=== PATIENT | female | born 1985 | race African-American/Black ===

== ENCOUNTER 2017-04-08 00:33 | Emergency (ER) | payer SELFPAY ==
[~2017-04-08] VITALS: Ht 165.1 cm; Wt 70.0 kg
[~2017-04-08 00:33] MED LIST: ALBU6.7H INH; DOCO200C5
[2017-04-08 07:30] VITALS: BP 117/69
== END 2017-04-08 08:14 | disposition home or self-care (01) ==
LOC: ER 00:33
DX: Z00.8 Encounter for other general examination (principal); F91.9 Conduct disorder, unspecified; F20.9 Schizophrenia, unspecified; F31.9 Bipolar disorder, unspecified; F15.10 Other stimulant abuse, uncomplicated; Z91.018 Allergy to other foods
CPT/HCPCS: 99281

== ENCOUNTER 2017-04-08 09:03 | Emergency (ER) | payer SELFPAY ==
[~2017-04-08] VITALS: Ht 167.6 cm; Wt 60.0 kg
[2017-04-08 10:00] VITALS: BP 110/65
== END 2017-04-08 10:05 | disposition home or self-care (01) ==
LOC: ER 09:24
DX: Z00.8 Encounter for other general examination (principal); F20.9 Schizophrenia, unspecified; F31.9 Bipolar disorder, unspecified; Z53.29 Procedure and treatment not carried out because of patient's decision for other reasons; Z91.018 Allergy to other foods
CPT/HCPCS: 99284

== ENCOUNTER 2017-04-08 12:36 | Emergency (ER) | payer SELFPAY ==
[~2017-04-08] VITALS: Ht 165.1 cm; Wt 60.0 kg
[2017-04-08 13:43] LABS: BASOPHILS % 0.3 % (0.0-2.0); EOSINOPHILS % 6.9 % (0.0-5.0); HEMATOCRIT. 32.4 % (36.0-48.0); HEMOGLOBIN. 10.9 g/dL (12.0-16.0); LYMPHOCYTES % 41.5 % (20.0-50.0); MEAN CORPUSCULAR HEMOGLOBIN 31.7 pg (28.0-32.0); MEAN CORPUSCULAR VOLUME 94.4 fL (81.0-99.0); MEAN PLATELET VOLUME 9.1 fl (7.4-10.4); MONOCYTES % 9.3 % (2.0-8.0); PLATELET 266 x1000/uL (130-400); RED BLOOD CELL COUNT 3.43 mill/uL (4.2-5.4); RED CELL DISTRIBUTION WIDTH 14.3 % (11.6-14.6)
[2017-04-08 13:45] LABS: CARBON DIOXIDE 30 mEq/L (21-32); CHLORIDE 107 mEq/L (98-107); ETHANOL BLOOD < 10 mg/dL
[2017-04-08 13:48] LABS: CLARITY URINE CLEAR (CLEAR); COLOR URINE YELLOW (YELLOW); GLUCOSE URINE NEGATIVE (NEGATIVE); KETONES URINE 1+ (NEGATIVE); LEUKOCYTE ESTERASE URINE NEGATIVE (NEGATIVE); NITRITE URINE NEGATIVE (NEGATIVE); OCCULT BLOOD URINE NEGATIVE (NEGATIVE); PROTEIN URINE TRACE (NEGATIVE); SPECIFIC GRAVITY URINE 1.033 (1.005-1.030)
[2017-04-08 14:10] LABS: *BARBITURATES SCREEN URINE NEGATIVE (NEGATIVE); *BENZODIAZEPINES SCREEN URINE NEGATIVE (NEGATIVE); *COCAINE SCREEN URINE NEGATIVE (NEGATIVE); CANNABINOID URINE SCREEN NEGATIVE (NEGATIVE); METHADONE URINE SCREEN NEGATIVE (NEGATIVE); OPIATES URINE SCREEN NEGATIVE (NEGATIVE); PHENCYCLIDINE URINE SCREEN NEGATIVE (NEGATIVE)
[2017-04-08 14:16] LABS: *AMPHETAMINES SCREEN URINE PRESUMTIVE POSITIVE (NEGATIVE)
[2017-04-08 14:43] LABS: HCG SCREEN NEGATIVE
[2017-04-08] MEDS ORDERED: SODIUM CHLORIDE 0.9% 1,000 ML IV NR (15:45)
[2017-04-08 18:15] VITALS: BP 111/74
== END 2017-04-08 18:16 | disposition home or self-care (01) ==
LOC: ER 12:37
DX: F15.10 Other stimulant abuse, uncomplicated (principal); F20.9 Schizophrenia, unspecified; F31.9 Bipolar disorder, unspecified; D64.9 Anemia, unspecified; D69.6 Thrombocytopenia, unspecified; Z91.018 Allergy to other foods; Z78.1 Physical restraint status
CPT/HCPCS: 36415; 80053; 80305; 80307; 80329; 81001; 84443; 84703; 85025; 93005; 96360; 99285; G0482; J7030; Z7610

== ENCOUNTER 2017-04-24 07:49 | Emergency (ER) | payer SELFPAY ==
[~2017-04-24] VITALS: Ht 157.5 cm; Wt 62.4 kg
[2017-04-24] MEDS ORDERED: HALO100A IM (07:57)
[2017-04-24] MEDS ORDERED: IBUPROFEN 600MG TABLET PO ONE (08:30)
[2017-04-24] MEDS ORDERED: LIDOCAINE HCL 1% 20ML VIAL (Pyxis) INJ MC ONE (08:30)
[2017-04-24] MEDS ORDERED: BACITRACIN ZINC OINT UDPKT TOP ONE (08:30)
[2017-04-24 09:46] VITALS: BP 108/69
[2017-04-24] MEDS ORDERED: TETANUS, DIPHTHERIA, PERTUSSIS VAC/PF 0.5ML (>7YR OLD) IM ONE (10:00)
== END 2017-04-24 10:54 | disposition home or self-care (01) ==
LOC: ER 08:24
DX: S61.012A Laceration without foreign body of left thumb without damage to nail, initial encounter (principal); F20.9 Schizophrenia, unspecified; F31.9 Bipolar disorder, unspecified; F15.10 Other stimulant abuse, uncomplicated; W26.8XXA Contact with other sharp object(s), not elsewhere classified, initial encounter; Y93.89 Activity, other specified; Y92.012 Bathroom of single-family (private) house as the place of occurrence of the external cause
CPT/HCPCS: 99283